=== PATIENT | female | born 1955 | race Two or more races ===

== ENCOUNTER 2025-10-11 11:48 | Inpatient (IN) | payer MEDICAID, OTHER ==
[~2025-10-11] VITALS: Ht 165.1 cm; Wt 67.1 kg
--- NOTE | 2025-10-11 12:11 | ED.PDOC ---
GI ASSESSMENT HPI Comments 69 y/o F, presents to the ED for CC of constipation. Patient states, she has been experiencing diffuse abdominal pain with associated constipation x10 days. Patient reports, taking over the counter medication such as MiraLax and milk of magnesium with no relief. Patient denies nausea, vomiting, fever, or chills. No other symptoms or modifying factors are present at this time. Chief Complaint: Constipation Time Seen by MD: 12:00 Reviewed Notes: Nurses Notes, Medications, Allergies Allergies: Coded Allergies: Penicillins (Verified Allergy, Unknown, 10/11/25) Information Source: Patient Mode of Arrival: Ambulatory Timing: Days Duration: Since onset Prehospital treatment: None Vomitus: None Stool: Impaction Severity: Moderate Recent: None Recent Hx of: None Pain Location: Diffuse, None Modifying Factors: Nothing Associated sign and symptoms: Constipation, Abdominal Pain Past Medical History PAST MEDICAL HISTORY: Denies Surgical History: Denies all surgeries RESIDENTIAL CARPENTER History: Denies all RESIDENTIAL CARPENTER Hx Family History Family History: Unknown Social History Smoker: Non-Smoker Alcohol: Denies ETOH Use Drugs: Denies Drug Use Lives In: Home Constitutional: denies: chills, diaphoresis, fatigue, fever, malaise, sweats, weakness, others EENTM: denies: blurred vision, double vision, ear bleeding, ear discharge, ear drainage, ear pain, ear ringing, eye pain, eye redness, hearing loss, mouth pain, mouth swelling, nasal discharge, nose bleeding, nose congestion, nose pain, photophobia, tearing, throat pain, throat swelling, voice changes, others Respiratory: denies: cough, hemoptysis, orthopnea, SOB at rest, shortness of breath, SOB with excertion, stridor, wheezing, others Cardiovascular: denies: chest pain, dizzy spells, diaphoresis, Dyspnea on exertion, edema, irregular heart beat, left arm pain, lightheadedness, palpitations, PND, syncope, others Gastrointestinal: reports: abdominal pain, constipated; denies: abdomen distended, blood streaked bowels, diarrhea, dysphagia, difficulty swallowing, hematemesis, melena, nausea, poor appetite, poor fluid intake, rectal bleeding, rectal pain, vomiting, others Genitourinary: denies: abnormal vagina bleeding, burning, dyspareunia, dysuria, flank pain, frequency, hematuria, incontinence, pain, , vagina discharge, urgency, others Neurological: denies: dizziness, fainting, headache, left sided numbness, left sided weakness, numbness, paresthesia, pre-existing deficit, right sided numbness, right sided weakness, seizure, speech problems, tingling, tremors, weakness, others Musculoskeletal: denies: back pain, gout, joint pain, joint swelling, muscle pain, muscle stiffness, neck pain, others Integumetry: denies: bruises, change in color, change in hair/nails, dryness, laceration, lesions, lumps, rash, wounds, others Allergic/Immunocompromised: denies: Difficulty Healing, Frequent Infections, Hives, Itching, others Hematologic/Lymphatic: denies: anemia, blood clots, easy bleeding, easy bruising, swollen glands, others Endocrine: denies: excessive hunger, excessive sweating, excessive thirst, excessive urination, flushing, intolerance to cold, intolerance to heat, unexplained weight gain, unexplained weight loss, others Psychiatric: denies: anxiety, bipolar disorder, depression, hopeless, panic disorder, schizophrenia, sleepless, suicidal, others All Other Systems: Reviewed and Negative Physical Exam General Appearance: Moderate Distress HEENT: Normal ENT Inspection, Pharynx Normal, TMs Normal Neck: Full Range of Motion, Non-Tender, Normal, Normal Inspection Respiratory: Chest Non-Tender, Lungs Clear, No Accessory Muscle Use, No Respiratory Distress, Normal Breath Sounds Cardiovascular: No Edema, No JVD, No Murmur, No Gallop, Normal Peripheral Pulses, Regular Rate/Rhythm Breast Exam: Deferred Gastrointestinal: Diffuse Genitalia: Deferred Pelvic: Deferred Rectal: Deferred Extremities: No calf tenderness, Normal capillary refill, Normal inspection, Normal range of motion, Non-tender, No pedal edema Musculoskeletal : Apperance: Normal Neurologic: Alert, corporate strategy associate II-XII nml as Tested, No Motor Deficits, Normal Affect, Normal Mood, No Sensory Deficits Cerebellar Function: Normal Reflexes: Normal Skin: Dry, Normal Color, Warm Peripheral Pulses: 3+ Radial (R), 3+ Radial (L) Lymphatic: No Adenopathy Was a procedure done? Was a procedure done?: No GI differential Dx Differential Diagnosis: Bowel Obstruction, Constipation, Diverticular disease, Esophagitis, Gastritis/PUD, Gastroenteritis X-Ray, Labs, Meds, VS Vital Signs Date Time Temp Pulse Resp B/P (MAP) Pulse Ox O2 Delivery O2 Flow Rate FiO2 10/11/25 11:50 98.7 106 16 159/115 95 98.7 Lab Test 10/11/25 12:48 Range/Units White Blood Count 11.9 H 4.4-10.8 10^3/uL Red Blood Count 4.20 4.0-5.20 10^6/uL Hemoglobin 12.3 12.2-16.2 g/dL Hematocrit 36.3 36.0-46.0 % Mean Corpuscular Volume 86.3 80.0-100.0 fL Mean Corpuscular Hemoglobin 29.2 28.0-32.0 pg Mean Corpuscular Hemoglobin Concent 33.8 32.0-36.0 g/dL Red Cell Distribution Width 13.8 11.8-14.3 % Platelet Count 402 140-450 10^3/uL Mean Platelet Volume 7.4 6.9-10.8 fL Neutrophils (%) (Auto) 85.8 H 37.0-80.0 % Lymphocytes (%) (Auto) 9.2 L 10.0-50.0 % Monocytes (%) (Auto) 4.7 0.0-12.0 % Eosinophils (%) (Auto) 0.0 0.0-7.0 % Basophils (%) (Auto) 0.3 0.0-2.0 % Neutrophils # (Auto) 10.2 H 1.6-8.6 10 ^3/uL Lymphocytes # (Auto) 1.1 0.4-5.4 10 ^3/uL Monocytes # (Auto) 0.6 0-1.3 10 ^3/uL Eosinophils # (Auto) 0 0-0.8 10 ^3/uL Basophils # (Auto) 0 0-0.2 10 ^3/uL Nucleated Red Blood Cells 0.0 % Sodium Level Pending Potassium Level Pending Chloride Level Pending Carbon Dioxide Level Pending Anion Gap Pending Blood Urea Nitrogen Pending Creatinine Pending Glomerular Filtration Rate Calc Pending BUN/Creatinine Ratio Pending Serum Glucose Pending Calcium Level Pending [facility] [id number] [place] [id number] Ph: [phone] DIAGNOSTIC IMAGING Diagnostic Imaging Report : [id number] Signed PATIENT: NEDA OLIVIERSHANICET: [id number] UNIT: [id number] : 1955 LOC: ER ROOM / BED: / AGE / SEX: 69 / F ADM STATUS: REG ER SERVICE 1213 ORDERING PHYSICIAN: DASH DAVIS MD PROCEDURE(s): ABPL - CT AB PEL WO CON-NO ORAL OR IV REASON: colitis ORDER NUMBER(s): [id number], ACCESSION NUMBER(s): [id number] EXAM: CT CT AB PEL WO CON-NO ORAL OR IV History: colitis Comparison Study: None TECHNIQUE: Multidetector CT of the abdomen and pelvis without IV contrast. Axial, coronal and sagittal multiplanar reformats were obtained from the axial data set by the technologist. Radiation Dose Information: CT Dose: CTDI volume is 9.0 mGy. Dose-length product is 463.34 mGy*cm FINDINGS: Bibasilar linear atelectasis. Partially visualized heart is unremarkable. 2.9 x 2.7 cm exophytic soft tissue density lesion which appears to possibly be connected to the Spleen or may represent adjacent Large Splenule. The spleen is otherwise unremarkable. Liver, gallbladder, pancreas and adrenal glands are unremarkable. Kidneys, ureters and urinary bladder are unremarkable. Uterine calcification is noted. Otherwise, uterus and adnexa unremarkable. Stomach is unremarkable. Small bowel loops are unremarkable. Appendix is not definitely visualized. No pericecal inflammatory reaction is noted. Without visualization of the Appendix, can not exclude acute appendicitis. Large amount of fecal material within the ascending and transverse colons small to moderate amount of fecal material within the Descending colon and Sigmoid. Decompression of the rectum. No evidence of intraperitoneal free air or free fluid. No evidence of aortic aneurysm. No significant lymphadenopathy. The soft tissues are unremarkable. Partially visualized bilateral breast implants. No evidence of acute osseous abnormalities. Sclerotic focus over the left proximal femur which may represent a small bone island. IMPRESSION: No evidence of acute abdominopelvic abnormalities. 2.9 cm exophytic soft tissue density lesion the Anterior Spleen which may represent lobulated spleen versus soft tissue density splenic lesion versus adjacent splenule. No evidence of colitis. Large amount of fecal material within the ascending and transverse colons with small to moderate Amount of fecal material within the Descending colon and Sigmoid and decompression of the rectum. ATED BY: SARITHA VALDEZ DO DICTATED DATE/TIME: 10/11/25 1320 SIGNED BY: SARITHA VALDEZ DO SIGNED DATE/TIME: 10/11/25 1320 CC: Patient alert. Complaining of abdominal pain. Vitals stable. Answering all questions. CT scan of the abdomen reviewed does not show any acute changes. Has chronic changes such as a enlarged spleen. WBC elevated. Establish intravenous access. Was given fluids. Was given Rocephin. Explained to the patient. Continue monitoring. Time of 1ST Reevaluation: 12:30 Reevaluation 1ST: Unchanged Patient Education/Counseling: Diagnosis, Treatment Family Education/Counseling: Diagnosis, Treatment SEPSIS Sepsis Screen Date sepsis recognized/suspect: Oct 11, 2025 Time Sepsis recognized/suspect: 1150 Recent Procedure: No On Antibiotic Therapy: No Respiratory Rate >20: No Heart Rate >90: Yes Temp<36 C (96.8 F) or >38.3 C: No SBP <90 or MAP <65 mmHG: No New Acute Mental Status Change: No Is the patient on CPAP, BIPAP,: No Physician Orders Ct Ab Pel Wo Con-No Oral Or Iv (10/11/25 12:13) Urinalysis (10/11/25 12:13) Basic Metabolic Panel (10/11/25 12:13) Vital Signs Date Time Temp Pulse Resp B/P (MAP) Pulse Ox O2 Delivery O2 Flow Rate FiO2 10/11/25 11:50 98.7 106 16 159/115 95 98.7 Laboratory Tests Test 10/11/25 12:48 White Blood Count 11.9 10^3/uL (4.4-10.8) H Departure 1 Departure Time of Disposition: 13:57 Impression: Primary Impression: Acute abdominal pain Disposition: 09 ADMITTED INPATIENT Admit to: Med Surg Condition: Guarded Critical Care Note Critical Care Time?: No Stability Stability form required: No Heart Score Heart Score: Heart Score Response (Comments) Value History N/A 0 EKG N/A 0 Age N/A 0 Risk Factors N/A 0 Troponin N/A 0 Total 0 I personally scribed for DASH DAVIS MD ([email or web address]) on 10/11/25 at 12:11. Electronically submitted by Ashia Holland ([email or web address]). I personally scribed for DASH DAVIS MD ([email or web address]) on 10/11/25 at 13:55. Electronically submitted by Ashia Holland [email or web address]). DASH DAVIS MD Oct 11, 2025 12:11
[2025-10-11] MEDS: SODIUM CHLORIDE 0.9% 1,000 ML IV ONE ×2 (12:15→23:45)
[2025-10-11 13:17] LABS: Hematocrit 36.3 % (36.0-46.0); Hemoglobin 12.3 g/dL (12.2-16.2); Mean Corpuscular Hemoglobin 29.2 pg (28.0-32.0); Mean Corpuscular Volume 86.3 fL (80.0-100.0); Nucleated Red Blood Cells % 0.0 %
--- NOTE | 2025-10-11 13:22 | DVH ---
EXAM: CT CT AB PEL WO CON-NO ORAL OR IV History: colitis Comparison Study: None TECHNIQUE: Multidetector CT of the abdomen and pelvis without IV contrast. Axial, coronal and sagittal multiplanar reformats were obtained from the axial data set by the technologist. Radiation Dose Information: CT Dose: CTDI volume is 9.0 mGy. Dose-length product is 463.34 mGy*cm FINDINGS: Bibasilar linear atelectasis. Partially visualized heart is unremarkable. 2.9 x 2.7 cm exophytic soft tissue density lesion which appears to possibly be connected to the Spleen or may represent adjacent Large Splenule. The spleen is otherwise unremarkable. Liver, gallbladder, pancreas and adrenal glands are unremarkable. Kidneys, ureters and urinary bladder are unremarkable. Uterine calcification is noted. Otherwise, uterus and adnexa unremarkable. Stomach is unremarkable. Small bowel loops are unremarkable. Appendix is not definitely visualized. No pericecal inflammatory reaction is noted. Without visualization of the Appendix, can not exclude acute appendicitis. Large amount of fecal material within the ascending and transverse colons small to moderate amount of fecal material within the Descending colon and Sigmoid. Decompression of the rectum. No evidence of intraperitoneal free air or free fluid. No evidence of aortic aneurysm. No significant lymphadenopathy. The soft tissues are unremarkable. Partially visualized bilateral breast implants. No evidence of acute osseous abnormalities. Sclerotic focus over the left proximal femur which may represent a small bone island. IMPRESSION: No evidence of acute abdominopelvic abnormalities. 2.9 cm exophytic soft tissue density lesion the Anterior Spleen which may represent lobulated spleen versus soft tissue density splenic lesion versus adjacent splenule. No evidence of colitis. Large amount of fecal material within the ascending and transverse colons with small to moderate Amount of fecal material within the Descending colon and Sigmoid and decompression of the rectum.
[2025-10-11 14:02] LABS: Chloride 99 mmol/L (98-107); Potassium 4.4 mmol/L (3.5-5.1); Sodium 137 mmol/L (136-145)
[2025-10-11 14:03] LABS: Anion Gap 11 (5-15); Calcium 9.9 mg/dL (8.7-10.4); Carbon Dioxide 27 mmol/L (20-31)
[2025-10-11 14:08] LABS: BUN/Creatinine Ratio 13.8 (10.0-20.0); Blood Urea Nitrogen 13 mg/dL (9-23)
[2025-10-11 14:14] LABS: Glucose 150 mg/dL (74-106)
[2025-10-11] MEDS: diphenhydrAMINE HCL 50 MG/1 ML VL ONE (15:19)
[2025-10-11] MEDS: diphenhydrAMINE HCL 50 MG/1 ML VL IV ONE (15:22)
[2025-10-11 15:26] LABS: Urine Protein, UAD 1+ (Negative)
[2025-10-11 19:28] VITALS: PULSE 103; RESP 18; O2SAT 98
[2025-10-11] MEDS: ACETAMINOPHEN 325 MG TAB PO ONE (22:57)
[2025-10-11] MEDS ORDERED: ONDANSETRON HCL 4 MG/2 ML VIAL IV PRN (23:45)
[2025-10-11] MEDS ORDERED: KETOROLAC TROMETH 30 MG/ML 1ML VIAL IV PRN (23:45)
[2025-10-12] VITALS (7 sets, daily range): BP systolic 159–170; BP diastolic 69–80; PULSE 92–107; RESP 12–18; TEMP 98.1–98.4; O2SAT 94–99
--- NOTE | 2025-10-12 02:57 | DVHHPRES ---
History of Present Illness Resident Creating Document: CARINE CRUZ RESIDENT History of Present Illness Patient is a 69-year-old female with past medical history of hypotension came to the ED with chief complaints of generalized diffuse abdominal pain which is a 9/10 in intensity, radiating to the back And states that she has not had a bowel movement since 10 days. Patient reports taking MiraLAX, milk of magnesium with no relief. Patient does state when wiping she sometimes sees bright red blood on tissue paper. Patient denies any nausea, vomiting, dysuria, hematuria Fever, chills. PMHx: Hypertension PSHx: , hernia repair Family history: reviewed, noncontributoy Social history: denies smoking, drinking, drug use Home medication: denies any Allergic history: penicillin Patient seen at bedside. Patient states she has 9/10 abdominal pain radiating to the back And constipation since 10 days. patient denies any nausea, vomiting, dysuria, hematuria, fever, chills. Review of Systems Constitutional: No: Fever, Chills, Sweats, Weakness, Malaise, Other Eyes: No: Pain, Vision change, Conjunctivae inflammation, Eyelid inflammation, Other, Redness ENT: No: Ear pain, Ear discharge, Nose pain, Nose discharge, Nose congestion, Mouth pain, Mouth swelling, Throat pain, Throat swelling, Other Respiratory: No: Cough, Dry, Shortness of breath, SOB with excertion, Wheezing, Hemoptysis, Pleuritic Pain, Sputum, Wheezing, Other Cardiovascular: No: Chest Pain, Palpitations, Orthopnea, Paroxysmal Noc. Dyspnea, Edema, Lt Headedness, Other Gastrointestinal: Nausea, Abdominal Pain, Constipation Genitourinary: No Dysuria, No Frequency, No Incontinence, No Hematuria, No Retention, No Other Musculoskeletal: No: other, neck pain, shoulder pain, arm pain, back pain, hand pain, leg pain, foot pain Skin: No: Rash, Lesions, Jaundice, Bruising, Other Neurological: No: Weakness, Numbness, Incoordination, Change in speech, Confusion, Seizures, Other Allergies: Coded Allergies: Penicillins (Verified Allergy, Unknown, 10/11/25) Medications Current Medications Medications Dose Ordered Sig/Arnaud Route Start Time Stop Time Status Last Admin Dose Admin Ondansetron HCl 4 mg Q4HP PRN IV 10/11/25 23:45 Enoxaparin Sodium 40 mg DAILY SC 10/12/25 10:00 Acetaminophen 650 mg Q6HR PRN PO 10/12/25 00:00 Ketorolac Tromethamine 15 mg Q6HPRN PRN IV 10/11/25 23:45 10/16/25 23:44 Polyethylene Glycol 17 gm DAILY PO 10/12/25 10:00 Lactulose 30 ml BID PO 10/12/25 10:00 Exam Vital Signs Vital Signs Date Time Temp Pulse Resp B/P (MAP) Pulse Ox O2 Delivery O2 Flow Rate FiO2 10/12/25 02:09 98.8 94 20 158/76 (103) 99 98.8 10/11/25 19:28 Room Air* 0 21 Exam General: Patient alert and oriented in person, place and time. Patient following commands. HEENT: Normocephalic, atraumatic, moist mucous membranes Respiratory/pulmonary: Clear lungs bilaterally, vesicular murmurs present in almost all lung bazan, no associated crackles or wheezes. Cardiovascular: Normal heart sounds S1 and S2 with no associated murmurs Abdomen: Abdomen nondistended, there is no pain to palpation in any of the abdominal quadrants, no palpable masses. Extremities: There is no peripheral edema present at the lower extremities. Peripheral Pulses: 3+ Radial (R). 3+ Radial (L). 3+ Dorsalis pedis (R). 3+ Dorsalis pedis(L) Skin: No rashes or pruritus, there is no sacral edema present at this time. Neurological: Intact cranial nerves with no focal neurologic deficits on rectal examination: patient has skin tag on exterior, small internal hemorrhoid felt at 9 o'clock position, no blood of stool seen on finger. Labs/Xrays Labs Test 10/11/25 14:35 10/11/25 12:48 Range/Units Urine Color Yellow Yellow Urine Clarity Clear Clear Urine pH 8.0 5.0-9.0 Urine Specific [place] 1.025 1.001-1.035 Urine Protein 1+ H Negative Urine Ketones Negative Negative Urine Blood Negative Negative /uL Urine Nitrite 1+ H Negative Urine Bilirubin Negative Negative Urine Urobilinogen 2 H Negative mg/dL Urine Leukocyte Esterase Negative Negative /uL Urine RBC 2 0 - 4 /hpf Urine Microscopic WBC 2 0-5 /HPF Urine Squamous Epithelial Cells Few <5 /hpf Urine Bacteria Few H None Seen /hpf Urine Mucus Few None Seen Urine Glucose Normal Normal mg/dL White Blood Count 11.9 H 4.4-10.8 10^3/uL Red Blood Count 4.20 4.0-5.20 10^6/uL Hemoglobin 12.3 12.2-16.2 g/dL Hematocrit 36.3 36.0-46.0 % Mean Corpuscular Volume 86.3 80.0-100.0 fL Mean Corpuscular Hemoglobin 29.2 28.0-32.0 pg Mean Corpuscular Hemoglobin Concent 33.8 32.0-36.0 g/dL Red Cell Distribution Width 13.8 11.8-14.3 % Platelet Count 402 140-450 10^3/uL Mean Platelet Volume 7.4 6.9-10.8 fL Neutrophils (%) (Auto) 85.8 H 37.0-80.0 % Lymphocytes (%) (Auto) 9.2 L 10.0-50.0 % Monocytes (%) (Auto) 4.7 0.0-12.0 % Eosinophils (%) (Auto) 0.0 0.0-7.0 % Basophils (%) (Auto) 0.3 0.0-2.0 % Neutrophils # (Auto) 10.2 H 1.6-8.6 10 ^3/uL Lymphocytes # (Auto) 1.1 0.4-5.4 10 ^3/uL Monocytes # (Auto) 0.6 0-1.3 10 ^3/uL Eosinophils # (Auto) 0 0-0.8 10 ^3/uL Basophils # (Auto) 0 0-0.2 10 ^3/uL Nucleated Red Blood Cells 0.0 % Sodium Level 137 136-145 mmol/L Potassium Level 4.4 3.5-5.1 mmol/L Chloride Level 99 98-107 mmol/L Carbon Dioxide Level 27 20-31 mmol/L Anion Gap 11 5-15 Blood Urea Nitrogen 13 9-23 mg/dL Creatinine 0.94 0.550-1.02 mg/dL Glomerular Filtration Rate Calc 67 >90 mL/min BUN/Creatinine Ratio 13.8 10.0-20.0 Serum Glucose 150 H 74-106 mg/dL Calcium Level 9.9 8.7-10.4 mg/dL Magnesium Level 2.4 1.6-2.6 mg/dL Thyroid Stimulating Hormone (TSH) 0.87 0.55-4.78 uIU/mL SEPSIS Sepsis Screen Date sepsis recognized/suspect: Oct 11, 2025 Time Sepsis recognized/suspect: 1938 Recent Procedure: No On Antibiotic Therapy: No Respiratory Rate >20: No Heart Rate >90: Yes Temp<36 C (96.8 F) or >38.3 C: No SBP <90 or MAP <65 mmHG: No New Acute Mental Status Change: No Is the patient on CPAP, BIPAP,: No Physician Orders Admit (10/11/25 23:44) Code Status (10/11/25 23:44) 2 Gm Sodium Diet (10/12/25 Breakfast) Ondansetron Hcl (Zofran) (10/11/25 23:45) Enoxaparin Sodium (Lovenox) (10/12/25 10:00) Complete Blood Count (10/12/25 04:00) Comprehensive Metabolic Panel (10/12/25 04:00) Condition: Serious (10/11/25 23:44) Acetaminophen Tablet (Tylenol Tablet) (10/12/25 00:00) Bedrest With Bathroom Privileg (10/11/25 23:44) Oxygen By Nasal Cannula (10/11/25 23:44) Stat Ekg For Chest Pain (10/11/25 23:44) Notify Md Of Changes From Base (10/11/25 23:44) Benefits Director For 24 Hours (10/11/25 23:44) Emergency Dysrhythmia Protocol (10/11/25 23:44) Rhythm Strips Once Every Shift (10/11/25 23:44) Ketorolac Injection (Toradol Injection) (10/11/25 23:45) Polyethylene Glycol 17g Powder (Miralax (10/12/25 10:00) Lactulose Oral (10/12/25 10:00) Stool Occult Blood (10/11/25 23:44) Stool Bacterial Culture (10/11/25 23:44) Stool Wbc (10/11/25 23:44) Ova & Parasite Exam (10/11/25 23:44) Peg 0404-Gcc-Wea Bicarb-Sod Ch (Golytely (10/12/25 03:00) Vital Signs Date Time Temp Pulse Resp B/P (MAP) Pulse Ox O2 Delivery O2 Flow Rate FiO2 12/29/25 02:09 98.8 94 20 158/76 (103) 99 98.8 10/11/25 23:57 98.8 10/11/25 22:57 99.5 10/11/25 19:28 103 18 98 Room Air* 0 21 Medications Medications Dose Ordered Sig/Arnaud Route Start Time Stop Time Status Last Admin Dose Admin Acetaminophen 650 mg ONCE ONCE PO 10/11/25 22:15 10/11/25 22:16 DC 10/11/25 22:57 650 MG Diphenhydramine HCl 50 mg ONCE ONCE IV 10/11/25 15:30 10/11/25 15:31 DC 10/11/25 15:22 50 MG Sodium Chloride 1,000 ml @ 1,000 mls/hr Q1H ONCE IV 10/11/25 23:45 10/12/25 00:44 DC 10/11/25 23:45 1,000 MLS/HR Assessment/Plan Assessment/Plan Intractable abdominal pain due to severe constipation Slow transit constipation - CT abdomen showed 2.9 cm exophytic soft tissue density lesion the Anterior Spleen which may represent lobulated spleen versus soft tissue density splenic lesion versus adjacent splenule. No evidence of colitis. Large amount of fecal material within the ascending and transverse colons with small to moderate Amount of fecal material within the Descending colon and Sigmoid and decompression of the rectum. - GoLYTELY - MiraLAX - lactulose b.i.d. - check stool WBC, culture, occult blood, ova parasite - ketorolac - check TSH Hypertension PPI prophylaxis: Protonix DVT prophylaxis: Lovenox Goals of care addressed with the patient for more than 27 minutes: Full code status Case discussed with Dr. Pacheco , patient and nurse Plan discussed with: Patient My Orders Orders - CARINE CRUZ Procedure Category Date Status Time Admit ADMIT 10/11/25 Transmitted 23:44 Code Status CODE 10/11/25 Transmitted 23:44 2 Gm Sodium Diet DIET 10/12/25 Transmitted Breakfast Ondansetron Hcl PHA 10/11/25 In Process (Zofran) 23:45 Enoxaparin Sodium PHA 10/12/25 In Process (Lovenox) 10:00 Complete Blood Count LAB 10/12/25 Logged 04:00 Comprehensive LAB 10/12/25 Logged Metabolic Panel 04:00 Condition: Serious ZAC 10/11/25 In Process 23:44 Acetaminophen Tablet PHA 10/12/25 In Process (Tylenol Tablet) 00:00 Bedrest With Bathroom ZAC 10/11/25 In Process Privileg 23:44 Oxygen By Nasal RT 10/11/25 Transmitted Cannula 23:44 Stat Ekg For Chest ZAC 10/11/25 In Process Pain 23:44 Notify Md Of Changes ZAC 10/11/25 In Process From Base 23:44 Benefits Director For [facility] 10/11/25 In Process 24 Hours 23:44 Emergency Dysrhythmia [facility] 10/11/25 In Process Protocol 23:44 Rhythm Strips Once ZAC 10/11/25 In Process Every Shift 23:44 Ketorolac Injection PHA 10/11/25 In Process (Toradol Injection) 23:45 Polyethylene Glycol PHA 10/12/25 In Process 17g Powder (Miralax 10:00 Lactulose Oral PHA 10/12/25 In Process 10:00 Stool Occult Blood LAB 10/11/25 Logged 23:44 Stool Bacterial KIM 10/11/25 Logged Culture 23:44 Stool Wbc LAB 10/11/25 Logged 23:44 Ova & Parasite Exam KIM 10/11/25 Logged 23:44 Peg 7509-Udz-Ple PHA 10/12/25 In Process Bicarb-Sod Ch 03:00 Visit Coding STANDARD RES Billing Provider: OLGA PACHECO MD Date of Service if different f: Oct 11, 2025 Common Visit Codes: 55259-[id number] INP/OBS CARE (HIGH) Secondary Visit Codes: [id number] CARE PLAN 30 MINUTES CARINE CRUZ RESIDENT Oct 12, 2025 02:57
[2025-10-12] MEDS: GOLYTELY 4L KIT PO ONE (03:23)
[2025-10-12 07:53] LABS: Hematocrit 34.8 % (36.0-46.0); Hemoglobin 11.7 g/dL (12.2-16.2); Mean Corpuscular Hemoglobin 29.1 pg (28.0-32.0); Mean Corpuscular Volume 86.2 fL (80.0-100.0); Nucleated Red Blood Cells % 0.0 %
[2025-10-12 08:01] LABS: Triglycerides 75 mg/dL (< 150)
[2025-10-12 08:03] LABS: Alanine Aminotransferase 14 U/L (7-40); Albumin 4.4 g/dL (3.2-4.8); Alkaline Phosphatase 139 U/L (46-116); Anion Gap 11 (5-15); BUN/Creatinine Ratio 13.2 (10.0-20.0); Bilirubin, Total 0.8 mg/dL (0.2-1.0); Blood Urea Nitrogen 10 mg/dL (9-23); Calcium 9.3 mg/dL (8.7-10.4); Carbon Dioxide 25 mmol/L (20-31); Chloride 103 mmol/L (98-107); Cholesterol 218 mg/dL (< 200); Glucose 151 mg/dL (74-106); HDL Cholesterol 68 mg/dL (40-59); Potassium 3.8 mmol/L (3.5-5.1); Sodium 139 mmol/L (136-145); Total Protein 7.8 g/dL (5.7-8.2)
[2025-10-12] MEDS: FLEET ENEMA(ADULT) 135 ML PR ONE (08:10)
[2025-10-12] MEDS: ENOXAPARIN SOD 40 MG/0.4 ML SYRINGE SC SCH (10:00)
[2025-10-12] MEDS: LACTULOSE 20Gm/30ML SOLN PO SCH (10:00)
[2025-10-12] MEDS: POLYETHYLENE GLYCOL 17 GM PWDR PO SCH (10:00)
[2025-10-12] MEDS: PANTOPRAZOLE 40 MG/10 ML VIAL INJ IV SCH (10:52)
[2025-10-12] MEDS: hydrALAZINE HCL 20 MG/ML VL IV ONE (10:53)
[2025-10-12] MEDS ORDERED: DOCU-265 PO (13:08)
[2025-10-12] MEDS ORDERED: AML5T PO (13:08)
[2025-10-12] MEDS ORDERED: POLY33505 GT (13:08)
[2025-10-12] MEDS: ACETAMINOPHEN 325 MG TAB PO PRN (14:37)
--- NOTE | 2025-10-12 18:11 | DVHDSRES ---
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 Wounds: No wounds present on admission Labs/Diagnostic Data: Laboratory Results Test 10/12/25 07:20 10/11/25 14:35 10/11/25 12:48 10/11/25 07:07 White Blood Count 10.0 10^3/uL (4.4-10.8) Red Blood Count 4.04 10^6/uL (4.0-5.20) Hemoglobin 11.7 g/dL (12.2-16.2) Hematocrit 34.8 % (36.0-46.0) Mean Corpuscular Volume 86.2 fL (80.0-100.0) Mean Corpuscular Hemoglobin 29.1 pg (28.0-32.0) Mean Corpuscular Hemoglobin Concent 33.7 g/dL (32.0-36.0) Red Cell Distribution Width 13.8 % (11.8-14.3) Platelet Count 357 10^3/uL (140-450) Mean Platelet Volume 7.4 fL (6.9-10.8) Neutrophils (%) (Auto) 75.0 % (37.0-80.0) Lymphocytes (%) (Auto) 16.6 % (10.0-50.0) Monocytes (%) (Auto) 6.8 % (0.0-12.0) Eosinophils (%) (Auto) 1.2 % (0.0-7.0) Basophils (%) (Auto) 0.4 % (0.0-2.0) Neutrophils # (Auto) 7.5 10 ^3/uL (1.6-8.6) Lymphocytes # (Auto) 1.7 10 ^3/uL (0.4-5.4) Monocytes # (Auto) 0.7 10 ^3/uL (0-1.3) Eosinophils # (Auto) 0.1 10 ^3/uL (0-0.8) Basophils # (Auto) 0 10 ^3/uL (0-0.2) Nucleated Red Blood Cells 0.0 % Sodium Level 139 mmol/L (136-145) Potassium Level 3.8 mmol/L (3.5-5.1) Chloride Level 103 mmol/L (98-107) Carbon Dioxide Level 25 mmol/L (20-31) Anion Gap 11 (5-15) Blood Urea Nitrogen 10 mg/dL (9-23) Creatinine 0.76 mg/dL (0.550-1.02) Glomerular Filtration Rate Calc 86 mL/min (>90) BUN/Creatinine Ratio 13.2 (10.0-20.0) Serum Glucose 151 mg/dL (74-106) Hemoglobin A1c 5.7 % A1C (<5.7) Calcium Level 9.3 mg/dL (8.7-10.4) Total Bilirubin 0.8 mg/dL (0.2-1.0) Aspartate Amino Transferase (AST) 23 U/L (13-40) Alanine Aminotransferase (ALT) 14 U/L (7-40) Alkaline Phosphatase 139 U/L (46-116) Total Protein 7.8 g/dL (5.7-8.2) Albumin 4.4 g/dL (3.2-4.8) Triglycerides Level 75 mg/dL (< 150) Cholesterol Level 218 mg/dL (< 200) LDL Cholesterol 133 mg/dL (< 100) HDL Cholesterol 68 mg/dL (40-59) Thyroid Stimulating Hormone (TSH) 1.19 uIU/mL (0.55-4.78) Urine Color Yellow (Yellow) Urine Clarity Clear (Clear) Urine pH 8.0 (5.0-9.0) Urine Specific [place] 1.025 (1.001-1.035) Urine Protein 1+ (Negative) Urine Ketones Negative (Negative) Urine Blood Negative /uL (Negative) Urine Nitrite 1+ (Negative) Urine Bilirubin Negative (Negative) Urine Urobilinogen 2 mg/dL (Negative) Urine Leukocyte Esterase Negative /uL (Negative) Urine RBC 2 /hpf (0 - 4) Urine Microscopic WBC 2 /HPF (0-5) Urine Squamous Epithelial Cells Few /hpf (<5) Urine Bacteria Few /hpf (None Seen) Urine Mucus Few (None Seen) Urine Glucose Normal mg/dL (Normal) Magnesium Level 2.4 mg/dL (1.6-2.6) Stool Occult Blood Negative (Negative) Stool Occult Blood Sample #3 (Negative) Stool for White Cells None seen Other Laboratory Tests 10/12/25 07:20 Brief Hx & Hospital Course: PHI: Niki David is a 69-year-old female with past medical history of hypotension came to the ED with chief complaints of generalized diffuse abdominal pain which is a 9/10 in intensity, radiating to the back And states that she has not had a bowel movement since 10 days. Patient reports taking MiraLAX, milk of magnesium with no relief. Patient does state when wiping she sometimes sees bright red blood on tissue paper. Patient denies any nausea, vomiting, dysuria, hematuria Fever, chills. PMHx: Hypertension PSHx: , hernia repair Family history: reviewed, noncontributoy Social history: denies smoking, drinking, drug use Home medication: denies any Allergic history: penicillin Hospital course: On 10/12/25, the patient was seen and evaluated at bedside. The patient reports having a large bowel movement at night, this improved her abdominal pain, now resolved. The patient was admitted The patient is tolerating well the diet. No new complaints. Due to clinical improvement the patient is being discharge home today with stool softeners. The patient was given a referral for GI for screening colonoscopy. The patient will f/u with PCP and d/c clinic in 72 hrs. All patient's question were answered satisfactorily, warning signs and when to return to the ED recommendations were given, patient agreed to understanding. ROS: Constitutional: No: Fever, Chills, Sweats, Weakness, Malaise, Other Eyes: No: Pain, Vision change, Conjunctivae inflammation, Eyelid inflammation, Other, Redness ENT: No: Ear pain, Ear discharge, Nose pain, Nose discharge, Nose congestion, Mouth pain, Mouth swelling, Throat pain, Throat swelling, Other Respiratory: No: Cough, Dry, Shortness of breath, SOB with excertion, Wheezing, Hemoptysis, Pleuritic Pain, Sputum, Wheezing, Other Cardiovascular: No: Chest Pain, Palpitations, Orthopnea, Paroxysmal Noc. Dyspnea, Edema, Lt Headedness, Other Gastrointestinal: No nausea or abdominal pain. Patient reported a large BM. Genitourinary: No Dysuria, No Frequency, No Incontinence, No Hematuria, No Retention, No Other Musculoskeletal: No: other, neck pain, shoulder pain, arm pain, back pain, hand pain, leg pain, foot pain Skin: No: Rash, Lesions, Jaundice, Bruising, Other Neurological: No: Weakness, Numbness, Incoordination, Change in speech, Confusion, Seizures, Other Allergies: Coded Allergies: Penicillins (Verified Allergy, Unknown, 10/11/25) Physical Exam General: Patient alert and oriented in person, place and time. Patient following commands. HEENT: Normocephalic, atraumatic, moist mucous membranes Respiratory/pulmonary: Clear lungs bilaterally, vesicular murmurs present in almost all lung bazan, no associated crackles or wheezes. Cardiovascular: Normal heart sounds S1 and S2 with no associated murmurs Abdomen: Abdomen nondistended, there is no pain to palpation in any of the abdominal quadrants, no palpable masses. Extremities: There is no peripheral edema present at the lower extremities. Peripheral Pulses: 3+ Radial (R). 3+ Radial (L). 3+ Dorsalis pedis (R). 3+ Dorsalis pedis(L) Skin: No rashes or pruritus, there is no sacral edema present at this time. Neurological: Intact cranial nerves with no focal neurologic deficits Plan: D/C home Diet high in fiber Increase water intake Amlodipine 5mg po daily Miralax 75g po daily Ducosate 100mg po bid Referral GI for screening colonoscopy Operations or Procedures PROCEDURE(s): ABPL - CT AB PEL WO CON-NO ORAL OR IV REASON: colitis ORDER NUMBER(s): [id number], ACCESSION NUMBER(s): [id number] EXAM: CT CT AB PEL WO CON-NO ORAL OR IV History: colitis Comparison Study: None TECHNIQUE: Multidetector CT of the abdomen and pelvis without IV contrast. Axial, coronal and sagittal multiplanar reformats were obtained from the axial data set by the technologist. Radiation Dose Information: CT Dose: CTDI volume is 9.0 mGy. Dose-length product is 463.34 mGy*cm FINDINGS: Bibasilar linear atelectasis. Partially visualized heart is unremarkable. 2.9 x 2.7 cm exophytic soft tissue density lesion which appears to possibly be connected to the Spleen or may represent adjacent Large Splenule. The spleen is otherwise unremarkable. Liver, gallbladder, pancreas and adrenal glands are unremarkable. Kidneys, ureters and urinary bladder are unremarkable. Uterine calcification is noted. Otherwise, uterus and adnexa unremarkable. Stomach is unremarkable. Small bowel loops are unremarkable. Appendix is not definitely visualized. No pericecal inflammatory reaction is noted. Without visualization of the Appendix, can not exclude acute appendicitis. Large amount of fecal material within the ascending and transverse colons small to moderate amount of fecal material within the Descending colon and Sigmoid. Decompression of the rectum. No evidence of intraperitoneal free air or free fluid. No evidence of aortic aneurysm. No significant lymphadenopathy. The soft tissues are unremarkable. Partially visualized bilateral breast implants. No evidence of acute osseous abnormalities. Sclerotic focus over the left proximal femur which may represent a small bone island. IMPRESSION: No evidence of acute abdominopelvic abnormalities. 2.9 cm exophytic soft tissue density lesion the Anterior Spleen which may represent lobulated spleen versus soft tissue density splenic lesion versus adjacent splenule. No evidence of colitis. Large amount of fecal material within the ascending and transverse colons with small to moderate Amount of fecal material within the Descending colon and Sigmoid and decompression of the rectum. Condition at Discharge: Stable Final Diagnosis/Problems List Acute complicated UTI Acute Fecal impaction Severe constipation Ruled out SOB Intractable abdominal pain likely due to above Uncontrolled hypertension hypertensive heart disease possible Discharge Disposition: Home SNF Discharge Will this Physician continue t: No Discharge Instruct/Medications Diet: Cardiac 2g Na,low cholest, See Comment Diet comment: Diet with high fiber content Activity: No Restrictions, As Tolerated Follow Up/Referral: Referral to GI for Screening colonoscpy F/U with PCP within 1 week F/U d/C clinic in 72 hrs Medications: Docusate 100mg po daily prn for contipation Miralax 17g po daily prn for contipation Amlodipine 5mg po daily Scheduled Amlodipine Besylate (Norvasc Tablet), 1 TAB PO DAILY Cephalexin (Keflex Capsule), 500 MG PO BID Polyethylene Glycol (Miralax), 17 GM GT DAILY Scheduled PRN Docusate Sodium (Docusate Sodium), 100 MG PO DAILY PRN Discharge Statement: "Patient was advised to return to the ER or call 911 if any headaches, dizziness, shortness of breath, chest pain, abdominal pain, bleeding, fevers, or worsening of medical condition. Patient was counseled about treatment plan, medications, possible side effects, patientverbalized understanding. All questions were answered to the best of my ability. This discharge took greater then 30 minutes in planning, reviewing documentation, counseling the patient, and discussing with other team members." Discharge Care Plan Instructions Take Rx medications, Notify MD of any issues, Keep list of meds w/ you, Do not drink ETOH/smoke, Call 911 in an emergency, F/U w/ PCP, Educate on timing of meds ASSESSMENT ASSESSMENT Assessment #Intractable abdominal pain #Ruled out SOB #Fecal impaction #Slow transit constipation #Uncontrolled hypertensive heart disease with possible systolic disfunction Visit Coding STANDARD RES Billing Provider: RASTA YEUNG MD Date of Service if different f: Oct 12, 2025 Common Visit Codes: 93073-YTV/OBS DISCH DAY >30min KEVIN YOST RESIDENT Oct 12, 2025 18:11 CIERRA ELENA RESIDENT Oct 13, 2025 08:10 RASTA YEUNG MD Oct 18, 2025 20:13
[2025-10-13] MEDS ORDERED: CEPH250C PO (08:09)
== END 2025-10-12 17:15 | disposition home or self-care (01) | DRG 254 ==
LOC: ER 11:48 → OVERFLOW 23:44
PROVIDERS: ADMIT Student in an Organized Health Care Education/Training Program; ATTEND Student in an Organized Health Care Education/Training Program
DX: K59.01 Slow transit constipation (principal); I10 Essential (primary) hypertension; N39.0 Urinary tract infection, site not specified; Z88.0 Allergy status to penicillin; Z79.899 Other long term (current) drug therapy
CPT/HCPCS: 36415; 74176; 80048; 80053; 80061; 81001; 82270; 83036; 83735; 84443; 85025; 85048; 87045; 87177; 87427; 96365; 96375; G0378; J2470